=== PATIENT | male | born 1985 | race Caucasian/White ===

== ENCOUNTER 2022-02-14 09:29 | Emergency (ER) | payer OTHER ==
[2022-02-14 09:41] VITALS: TEMP 98.1
[2022-02-14] MEDS ORDERED: NITROGLYCERIN OINT 1 INCH/GM PACKET TOPICAL STA (09:55)
[2022-02-14] MEDS ORDERED: ASPIRIN 81 MG PO STA (09:55)
--- NOTE | 2022-02-14 10:01 | ED ---
General Adult HPI - General Chief complaint: Recheck/Abnormal Lab/Rx Stated complaint: High BP Time Seen by Provider: 02/14/22 09:44 Source: patient, RN notes reviewed Mode of arrival: ambulatory Limitations: no limitations - History of Present Illness Initial comments: Patient is a pleasant 36-year-old male presenting to the emergency department with concerns with high blood pressure. Blood pressure has been running high the past couple of days. Blood pressure has been as high as 150/130 at home. Patient has been having problems with his right lower first molar. Patient states this is waxing and waning. Discomfort of the tooth does worsen with cold water. No tooth discomfort at this time. Patient is also been experiencing some heaviness in his chest. Discomfort is mild at this time, 1 or 2/10. Discomfort has overall been mild and intermittent. - Related Data Home Medications Medication Instructions Recorded Confirmed Ascorbic Acid [Vitamin C] 1,000 mg PO DAILY 02/14/22 02/14/22 Cetirizine HCl [Zyrtec] 10 mg PO DAILY 02/14/22 02/14/22 Cholecalciferol [Vitamin D3 (25 50 mcg PO DAILY 02/14/22 02/14/22 Mcg = 1000 Iu)] Vitamin B Complex 1 cap PO DAILY 02/14/22 02/14/22 Previous Rx's Medication Instructions Recorded Erythromycin [Jonah-Tab] 250 mg PO Q8HR #30 tablet 02/14/22 Ibuprofen [Motrin] 600 mg PO Q6HR PRN #20 tab 02/14/22 Allergies Allergy/AdvReac Type Severity Reaction Status Date / Time amoxicillin Allergy Anaphylaxis Verified 02/14/22 11:56 Penicillins Allergy Anaphylaxis Verified 02/14/22 11:56 Review of Systems ROS Statement: Those systems with pertinent positive or pertinent negative responses have been documented in the HPI. ROS Other: All systems not noted in ROS Statement are negative. Constitutional: Denies: fever Eyes: Denies: eye pain ENT: Reports: dental pain Respiratory: Denies: cough Cardiovascular: Reports: chest pain Endocrine: Denies: fatigue Gastrointestinal: Denies: abdominal pain, nausea, vomiting Genitourinary: Denies: dysuria Musculoskeletal: Denies: back pain Skin: Denies: rash Neurological: Denies: weakness Past Medical History Past Medical History: No Reported History History of Any Multi-Drug Resistant Organisms: None Reported Additional Past Surgical History / Comment(s): oral surgery Past Psychological History: No Psychological Hx Reported Smoking Status: Former smoker Past Alcohol Use History: None Reported Past Drug Use History: None Reported General Exam Limitations: no limitations General appearance: alert, in no apparent distress Head exam: Present: normocephalic Eye exam: Present: normal appearance ENT exam: Present: normal oropharynx Neck exam: Present: normal inspection Respiratory exam: Present: normal lung sounds bilaterally. Absent: chest wall tenderness Cardiovascular Exam: Present: regular rate, normal rhythm Expanded Peripheral pulses: 2+: Radial (R), Radial (L), Posterior Tibialis (R), Posterior Tibialis (L) GI/Abdominal exam: Present: soft. Absent: tenderness Extremities exam: Present: normal inspection. Absent: pedal edema, calf tenderness Neurological exam: Present: alert Psychiatric exam: Present: normal affect, normal mood Skin exam: Present: normal color Course Vital Signs 02/14/22 02/14/22 02/14/22 09:36 10:25 12:24 Temperature 98.1 F Pulse Rate 85 76 82 Respiratory 16 18 18 Rate Blood Pressure 145/92 115/73 115/77 O2 Sat by Pulse 99 98 100 Oximetry EKG Findings - EKG Comments: EKG Findings:: Sinus rhythm 71. ME 16. QRS 98. QT 374. QTC 396. Normal axis. Normal QRS. No acute ST change. Medical Decision Making - Medical Decision Making Patient reevaluated and resting complain bed. Patient states his tooth is bothering him otherwise has no complaints at this time. Discussion had with patient regarding limitations in the emergency Department testing including troponin and troponin delay and others. Patient does not want to have repeat testing and would like to go home. Patient does them straight medical decision making. Patient does have appointment scheduled for dentist but will try to get a sooner 1. Patient states he is only concerned about his tooth this time - Lab Data Result diagrams: 02/14/22 10:02/14/22 10: Lab Results 02/14/22 02/14/22 02/14/22 Range/Units 10: 10:17 10:17 WBC 5.6 (3.8-10.6) k/uL RBC 4.73 (4.30-5.90) m/uL Hgb 14.5 (13.0-17.5) gm/dL Hct 40.4 (39.0-53.0) % MCV 85.4 (80.0-100.0) fL MCH 30.7 (25.0-35.0) pg MCHC 36.0 (31.0-37.0) g/dL RDW 12.0 (11.5-15.5) % Plt Count 210 (150-450) k/uL MPV 9.5 Neutrophils % 70 % Lymphocytes % 22 % Monocytes % 5 % Eosinophils % 0 % Basophils % 1 % Neutrophils # 3.9 (1.3-7.7) k/uL Lymphocytes # 1.2 (1.0-4.8) k/uL Monocytes # 0.3 (0-1.0) k/uL Eosinophils # 0.0 (0-0.7) k/uL Basophils # 0.1 (0-0.2) k/uL PT 10.6 (9.0-12.0) sec INR 1.0 (<1.2) APTT 23.4 (22.0-30.0) sec D-Dimer <0.17 (<0.60) mg/L FEU Sodium 141 (137-145) mmol/L Potassium 4.2 (3.5-5.1) mmol/L Chloride 104 (98-107) mmol/L Carbon Dioxide 24 (22-30) mmol/L Anion Gap 13 mmol/L BUN 11 (9-20) mg/dL Creatinine 0.62 L (0.66-1.25) mg/dL Est GFR (CKD-EPI)AfAm >90 (>60 ml/min/1.73 sqM) Est GFR (CKD-EPI)NonAf >90 (>60 ml/min/1.73 sqM) Glucose 110 H (74-99) mg/dL Calcium 9.4 (8.4-10.2) mg/dL Magnesium 1.7 (1.6-2.3) mg/dL Total Bilirubin 0.7 (0.2-1.3) mg/dL AST 20 (17-59) U/L ALT 22 (4-49) U/L Alkaline Phosphatase 83 (38-126) U/L Troponin I (0.000-0.034) ng/mL Total Protein 7.2 (6.3-8.2) g/dL Albumin 4.8 (3.5-5.0) g/dL 02/14/22 Range/Units 10:17 WBC (3.8-10.6) k/uL RBC (4.30-5.90) m/uL Hgb (13.0-17.5) gm/dL Hct (39.0-53.0) % MCV (80.0-100.0) fL MCH (25.0-35.0) pg MCHC (31.0-37.0) g/dL RDW (11.5-15.5) % Plt Count (150-450) k/uL MPV Neutrophils % % Lymphocytes % % Monocytes % % Eosinophils % % Basophils % % Neutrophils # (1.3-7.7) k/uL Lymphocytes # (1.0-4.8) k/uL Monocytes # (0-1.0) k/uL Eosinophils # (0-0.7) k/uL Basophils # (0-0.2) k/uL PT (9.0-12.0) sec INR (<1.2) APTT (22.0-30.0) sec D-Dimer (<0.60) mg/L FEU Sodium (137-145) mmol/L Potassium (3.5-5.1) mmol/L Chloride (98-107) mmol/L Carbon Dioxide (22-30) mmol/L Anion Gap mmol/L BUN (9-20) mg/dL Creatinine (0.66-1.25) mg/dL Est GFR (CKD-EPI)AfAm (>60 ml/min/1.73 sqM) Est GFR (CKD-EPI)NonAf (>60 ml/min/1.73 sqM) Glucose (74-99) mg/dL Calcium (8.4-10.2) mg/dL Magnesium (1.6-2.3) mg/dL Total Bilirubin (0.2-1.3) mg/dL AST (17-59) U/L ALT (4-49) U/L Alkaline Phosphatase (38-126) U/L Troponin I <0.012 (0.000-0.034) ng/mL Total Protein (6.3-8.2) g/dL Albumin (3.5-5.0) g/dL - Radiology Data Radiology results: image reviewed (Chest x-ray shows no acute process) Disposition Clinical Impression: Dentalgia Disposition: HOME SELF-CARE Condition: Stable Instructions (If sedation given, give patient instructions): Toothache (ED), Chest Pain (ED) Additional Instructions: Please do follow-up with her dentist as planned. Try to get sooner appointment. Return for increased pain, swelling, chest pain or shortness of breath, worsening symptoms or any other concerns. Prescriptions at the pharmacy. Prescriptions: Erythromycin [Jonah-Tab] 250 mg PO Q8HR #30 tablet Ibuprofen [Motrin] 600 mg PO Q6HR PRN #20 tab PRN Reason: Pain Is patient prescribed a controlled substance at d/c from ED?: No Referrals: [facility] [Primary Care Provider] - 1-2 days Time of Disposition: 12:37
[2022-02-14 10:25] VITALS: RESP 18
[2022-02-14 10:34] LABS: Basophils # (A) 0.1 k/uL (0-0.2); Basophils % (A) 1 %; Eosinophils % (A) 0 %; HCT 40.4 % (39.0-53.0); HGB 14.5 gm/dL (13.0-17.5); Lymphocytes # (A) 1.2 k/uL (1.0-4.8); Lymphocytes % (A) 22 %; MCH 30.7 pg (25.0-35.0); MCV 85.4 fL (80.0-100.0); Mean Platelet Volume 9.5; Monocytes # (A) 0.3 k/uL (0-1.0); Monocytes % (A) 5 %; Neutrophils # (A) 3.9 k/uL (1.3-7.7); Neutrophils % (A) 70 %; Platelet Count 210 k/uL (150-450); RBC 4.73 m/uL (4.30-5.90); WBC 5.6 k/uL (3.8-10.6)
[2022-02-14 10:46] LABS: ALT 22 U/L (4-49); AST 20 U/L (17-59); African American GFR (CKD) >90 (>60 ml/min/1.73 sqM); Albumin 4.8 g/dL (3.5-5.0); Alkaline Phosphatase 83 U/L (38-126); Anion Gap 13 mmol/L; Blood Urea Nitrogen 11 mg/dL (9-20); Calcium 9.4 mg/dL (8.4-10.2); Carbon Dioxide 24 mmol/L (22-30); Chloride 104 mmol/L (98-107); Glucose 110 mg/dL (74-99); Magnesium 1.7 mg/dL (1.6-2.3); Non-African American GFR(CKD) >90 (>60 ml/min/1.73 sqM); Potassium 4.2 mmol/L (3.5-5.1); Sodium 141 mmol/L (137-145); Total Bilirubin 0.7 mg/dL (0.2-1.3); Total Protein 7.2 g/dL (6.3-8.2)
[2022-02-14 10:48] LABS: Partial Thromboplastin Time 23.4 sec (22.0-30.0); Prothrombin Time 10.6 sec (9.0-12.0)
--- NOTE | 2022-02-14 10:53 | XR ---
EXAMINATION TYPE: XR chest 2V DATE OF EXAM: 02/14/2022 COMPARISON: NONE HISTORY: Chest pain. TECHNIQUE: Frontal and lateral views of the chest are obtained. FINDINGS: There is no focal air space opacity, pleural effusion, or pneumothorax seen. The cardiac silhouette size is within normal limits. The osseous structures are intact. Overlying EKG leads are present. IMPRESSION: No acute process.
[2022-02-14 12:24] VITALS: BP 115/77; PULSE 82
[2022-02-14] MEDS ORDERED: KETOROLAC 15 MG/ML 1 ML VIAL IVP STA (12:35)
[2022-02-14] MEDS ORDERED: ACET/COD 300 MG/30 MG STARTER PACK 6 TAB BTL PO STA (12:39)
== END 2022-02-14 12:51 | disposition home or self-care (01) ==
LOC: EC 09:29
DX: K08.89 Other specified disorders of teeth and supporting structures (principal); Z87.891 Personal history of nicotine dependence; Z88.0 Allergy status to penicillin
CPT/HCPCS: 36415; 93005; 85379; 80053; 83735; 84484; 85025; 85610; 85730; 71046; 96374; 99284; J1885

== ENCOUNTER 2022-10-07 13:43 | Emergency (ER) | payer OTHER ==
[2022-10-07 13:51] VITALS: BP 143/82; TEMP 98.2
[2022-10-07] MEDS ORDERED: SODIUM CHLORIDE 0.9% 1,000 ML IV ONE (14:22)
--- NOTE | 2022-10-07 14:27 | ED ---
General Adult HPI - General Chief complaint: Recheck/Abnormal Lab/Rx Stated complaint: HTN Time Seen by Provider: 10/07/22 14:06 Source: patient, RN notes reviewed Mode of arrival: ambulatory Limitations: no limitations - History of Present Illness Initial comments: This is a pleasant 37-year-old male presents to emergency department complaining of urinary frequency for the past 3 weeks. Patient also has a mild pressure in his bilateral kidney area. Patient states she ended up going to his regular doctor for this and had a urinalysis done as well as some blood work. There was no answer. Patient states he then passed a small kidney stone. Patient states he was better after that. Now the symptoms have started again. Interestingly, the patient never had what he would call actual pain. Just very mild pressure in the bilateral back area. No hematuria. No fever or chills. No nausea or vomiting. No chest pain or shortness of breath. - Related Data Home Medications Medication Instructions Recorded Confirmed Cetirizine HCl [Zyrtec] 10 mg PO HS 02/14/22 10/07/22 Cholecalciferol [Vitamin D3 (25 50 mcg PO DAILY 02/14/22 10/07/22 Mcg = 1000 Iu)] Ascorbic Acid [Vitamin C] 500 mg PO DAILY 10/07/22 10/07/22 Cinnamon Bark [Cinnamon] 1,000 mg PO DAILY 10/07/22 10/07/22 Fish Oil 1,200 Mg/[place]-3 360mg 1 cap PO DAILY 10/07/22 10/07/22 Magnesium Oxide [Magnesium] 500 mg PO DAILY 10/07/22 10/07/22 Vitamin E (Dl,Tocopheryl Acet) 400 unit PO DAILY 10/07/22 10/07/22 [Vitamin E (400 Iu = 180 mg)] Zinc Gluconate [Zinc] 50 mg PO DAILY 10/07/22 10/07/22 Previous Rx's Medication Instructions Recorded Tamsulosin [Flomax] 0.4 mg PO DAILY #30 cap 10/07/22 Allergies Allergy/AdvReac Type Severity Reaction Status Date / Time amoxicillin Allergy Anaphylaxis Verified 10/07/22 14:17 Penicillins Allergy Anaphylaxis Verified 10/07/22 14:17 Review of Systems ROS Statement: Those systems with pertinent positive or pertinent negative responses have been documented in the HPI. ROS Other: All systems not noted in ROS Statement are negative. Past Medical History Past Medical History: No Reported History History of Any Multi-Drug Resistant Organisms: None Reported Additional Past Surgical History / Comment(s): oral surgery Past Psychological History: No Psychological Hx Reported Smoking Status: Former smoker Past Alcohol Use History: None Reported Past Drug Use History: None Reported General Exam - General Exam Comments Initial Comments: Patient does not appear to be ill or toxic. Blood pressure minimally elevated. Cranial nerves II through XII grossly intact. Capillary refill less than 2 seconds. Limitations: no limitations General appearance: alert, in no apparent distress Head exam: Present: atraumatic, normocephalic, normal inspection Eye exam: Present: normal appearance, PERRL, EOMI. Absent: scleral icterus, conjunctival injection, periorbital swelling ENT exam: Present: normal exam, mucous membranes moist Neck exam: Present: normal inspection, full ROM. Absent: tenderness, meningismus, lymphadenopathy Respiratory exam: Present: normal lung sounds bilaterally. Absent: respiratory distress, wheezes, rales, rhonchi, stridor, chest wall tenderness, accessory muscle use Cardiovascular Exam: Present: regular rate, normal rhythm, normal heart sounds. Absent: systolic murmur, diastolic murmur, rubs, gallop, clicks GI/Abdominal exam: Present: soft, normal bowel sounds. Absent: distended, tenderness, guarding, rebound, rigid Rectal exam: Present: deferred exam: Present: normal inspection, circumcision, other (No adenopathy). Absent: testicular tenderness, urethral discharge, scrotal swelling Extremities exam: Present: normal inspection, full ROM, normal capillary refill. Absent: tenderness, pedal edema, joint swelling, calf tenderness Back exam: Present: normal inspection, full ROM. Absent: CVA tenderness (R), CVA tenderness (L), rash noted Neurological exam: Present: alert, oriented X3, CN II-XII intact Psychiatric exam: Present: normal affect, normal mood Skin exam: Present: warm, dry, intact, normal color. Absent: rash Course Vital Signs 10/07/22 13:49 Temperature 98.2 F Pulse Rate 86 Respiratory 20 Rate Blood Pressure 143/82 O2 Sat by Pulse 99 Oximetry - Reevaluation(s) Reevaluation #1: 10/07/22 15:16 Independent interpretation of the CT abdomen and pelvis with IV contrast by me shows no evidence of acute pathology. No free air. No hydronephrosis. No perinephric stranding. No evidence of obstruction. Patient does have a calcification noted in the left hemipelvis adjacent to the UVJ. No mention by radiology. Did review radiology interpretation. 10/07/22 15:18 Medical Decision Making - Medical Decision Making Was pt. sent in by a medical professional or institution? @ -No Did you speak to anyone other than the patient for history? @ -Patient's significant other also in the room Did you review nursing and triage notes? @ -Agree Were old charts reviewed? @ -no Differential Diagnosis? @ -Differential diagnosis includes but is not limited tourinary retention, ure terolithiasis, less likely infectious etiology such as urinary tract infection or pyelonephritis. Other evidently such as perinephric abscess unlikely but possible. Less frequent diagnosis is lying pain and hematuria possible unlikely. Does not appear to be consistent with other flexion such as cauda equina syndrome as the patient is ambulatory. Has no neurological symptoms. No saddle anesthesia. EKG interpreted by me (3pts min.)? @ -[EKG independently interpreted by me at 1405 reveals sinus rhythm with QRS duration 122 ms. Rate 80, Other intervals are normal. Left axis deviation. No acute ST or T-wave changes. No Comparison study.] X-rays interpreted by me (1pt min.)? @ -[none] CT interpreted by me (1pt min.)? @ -[none] U/S interpreted by me (1pt. min.)? @ -[none] What testing was considered but not performed? (CT, X-rays, U/S, labs)? Why? @ [None] What meds were considered but not given? Why? @ -[none] Did you discuss the management of the patient with other professionals? @ -Case discussed with the on-call urologist, Dr. Hernandez, who advised follow-up in his office. He suggested there may be a possible urethral stricture. He suggested Flomax 0.4 mg by mouth. The case was discussed in detail with ED attending physician. Presentation, findings, treatment plan discussed in detail. Did you reconcile home meds? @ -[none] Was smoking cessation discussed for >3mins.? @ -[none] Was critical care preformed (if so, how long)? @ -[none] Were there social determinants of health that impacted care today? How? (Homelessness, low income, unemployed, alcoholism, drug addiction, transportation, low edu. Level, literacy, decrease access to med. care, longterm, rehab)? @ -None Was there de-escalation of care discussed even if they declined? (Discuss DNR or withdrawal of care, Hospice)? @ -Not applicable What co-morbidities impacted this encounter? (DM, HTN, Smoking, COPD, CAD, Cancer, CVA, Hep., AIDS, mental health diagnosis, sleep apnea, morbid obesity)? @ -9 Was patient admitted / discharged? @ -Patient was told to return to the ER for any signs or symptoms worsen. Told to return immediately if any other problems arise. All questions answered. Treatment plan discussed. Patient in agreement Every effort has been made to ensure accuracy of this dictation. However, due to the limitations of electronic medical records and dictation devices, errors in charting still occur. Undiagnosed new problem with uncertain prognosis? @ -New problem, uncertain prognosis Drug Therapy requiring intensive monitoring for toxicity (Heparin, Nitro, Insulin, Cardizem)? @ -[none] Were any procedures done? @ -Bladder scan, greater than 500 mL on initial scan, postvoid residual 278 mL. Diagnosis/symptom? @ -Urinary retention, urinary frequency Acute, or Chronic, or Acute on Chronic? @ -Acute Uncomplicated (without systemic symptoms) or Complicated (systemic symptoms)? @ -Relatively uncomplicated at this point. However needs follow-up. Case discussed with urology. Certainly this could be problematic if not followed up on appropriately. Side effects of treatment? @ -[none] Exacerbation, Progression, or Severe Exacerbation] @ -[no] Poses a threat to life or bodily function? @ -Possible if not followed up on. Patient follow-up with urology. Seems to be relatively minor at this point. - Lab Data Result diagrams: 10/07/22 14:20 10/07/22 14:20 Lab Results 10/07/22 10/07/22 10/07/22 Range/Units 14:20 14:20 14:47 WBC 5.3 (3.8-10.6) k/uL RBC 4.70 (4.30-5.90) m/uL Hgb 14.0 (13.0-17.5) gm/dL Hct 40.6 (39.0-53.0) % MCV 86.4 (80.0-100.0) fL MCH 29.8 (25.0-35.0) pg MCHC 34.5 (31.0-37.0) g/dL RDW 12.2 (11.5-15.5) % Plt Count 226 (150-450) k/uL MPV 8.9 Neutrophils % 68 % Lymphocytes % 25 % Monocytes % 4 % Eosinophils % 1 % Basophils % 1 % Neutrophils # 3.6 (1.3-7.7) k/uL Lymphocytes # 1.3 (1.0-4.8) k/uL Monocytes # 0.2 (0-1.0) k/uL Eosinophils # 0.1 (0-0.7) k/uL Basophils # 0.0 (0-0.2) k/uL Sodium 140 (137-145) mmol/L Potassium 4.1 (3.5-5.1) mmol/L Chloride 102 (98-107) mmol/L Carbon Dioxide 26 (22-30) mmol/L Anion Gap 12 mmol/L BUN 7 L (9-20) mg/dL Creatinine 0.65 L (0.66-1.25) mg/dL Est GFR (CKD-EPI)AfAm >90 (>60 ml/min/1.73 sqM) Est GFR (CKD-EPI)NonAf >90 (>60 ml/min/1.73 sqM) Glucose 105 H (74-99) mg/dL Calcium 8.8 (8.4-10.2) mg/dL Total Bilirubin 0.5 (0.2-1.3) mg/dL AST 25 (17-59) U/L ALT 25 (4-49) U/L Alkaline Phosphatase 73 (38-126) U/L Total Protein 7.4 (6.3-8.2) g/dL Albumin 4.5 (3.5-5.0) g/dL Lipase 108 (23-300) U/L Urine Color Colorless Urine Appearance Clear (Clear) Urine pH 6.5 (5.0-8.0) Ur Specific [place] 1.003 (1.001-1.035) Urine Protein Negative (Negative) Urine Glucose (UA) Negative (Negative) Urine Ketones Negative (Negative) Urine Blood Negative (Negative) Urine Nitrite Negative (Negative) Urine Bilirubin Negative (Negative) Urine Urobilinogen <2.0 (<2.0) mg/dL Ur Leukocyte Esterase Negative (Negative) Disposition Clinical Impression: Acute urinary retention, Frequent urination Disposition: HOME SELF-CARE Condition: Good Instructions (If sedation given, give patient instructions): Urinary Retention in Men (ED) Additional Instructions: Follow-up with the urologist as discussed. Call the office at 8 or 9 AM Monday morning to schedule follow-up. Take the Flomax as directed. Follow-up with your regular physician as directed. Return to the ER immediately if any symptoms worsen, new symptoms arise, or any other problems develop. Is patient prescribed a controlled substance at d/c from ED?: No When asked, does pt state using other controlled substances?: No Referrals: Kike Hernandez MD [STAFF PHYSICIAN] - 10/11/22 Time of Disposition: 16:19
[2022-10-07 14:49] LABS: Basophils % (A) 1 %; Eosinophils # (A) 0.1 k/uL (0-0.7); Eosinophils % (A) 1 %; HCT 40.6 % (39.0-53.0); Lymphocytes # (A) 1.3 k/uL (1.0-4.8); Lymphocytes % (A) 25 %; MCH 29.8 pg (25.0-35.0); MCHC 34.5 g/dL (31.0-37.0); MCV 86.4 fL (80.0-100.0); Mean Platelet Volume 8.9; Monocytes # (A) 0.2 k/uL (0-1.0); Monocytes % (A) 4 %; Neutrophils # (A) 3.6 k/uL (1.3-7.7); Neutrophils % (A) 68 %; Platelet Count 226 k/uL (150-450); RDW 12.2 % (11.5-15.5); WBC 5.3 k/uL (3.8-10.6)
[2022-10-07 15:10] LABS: ALT 25 U/L (4-49); AST 25 U/L (17-59); African American GFR (CKD) >90 (>60 ml/min/1.73 sqM); Albumin 4.5 g/dL (3.5-5.0); Alkaline Phosphatase 73 U/L (38-126); Anion Gap 12 mmol/L; Blood Urea Nitrogen 7 mg/dL (9-20); Calcium 8.8 mg/dL (8.4-10.2); Carbon Dioxide 26 mmol/L (22-30); Chloride 102 mmol/L (98-107); Glucose 105 mg/dL (74-99); Lipase 108 U/L (23-300); Non-African American GFR(CKD) >90 (>60 ml/min/1.73 sqM); Potassium 4.1 mmol/L (3.5-5.1); Sodium 140 mmol/L (137-145); Total Bilirubin 0.5 mg/dL (0.2-1.3); Total Protein 7.4 g/dL (6.3-8.2)
--- NOTE | 2022-10-07 15:12 | CT ---
EXAMINATION TYPE: CT abdomen pelvis w con DATE OF EXAM: 10/07/2022 COMPARISON: None HISTORY: Bilateral flank pain, CVA area, urinary frequency CT DLP: 1545.1 mGycm Automated exposure control for dose reduction was used. TECHNIQUE: Helical acquisition of images was performed from the lung bases through the pelvis. CONTRAST: Performed without Oral Contrast and with IV Contrast, patient injected with 100ml mL of Isovue 300. FINDINGS: Lung bases are clear. The gallbladder is normal without distention, wall thickening, gallstone or pericholecystic fluid. Th ere is no biliary ductal dilatation. There is no focal mass or organomegaly involving the solid visceral organs of the upper abdomen. The kidneys enhance symmetrically and promptly and there is no solid renal mass or hydronephrosis. There is no retroperitoneal adenopathy or hemorrhage in the caliber the abdominal aorta is normal. The bowel loops are normal in caliber and there is no dilatation or obstruction. No inflammatory changes are identified in the bowel wall or mesentery. There is no pelvic mass, free fluid, abscess or adenopathy. The soft tissues and osseous structures of the abdomen and pelvis are intact. IMPRESSION: No significant abnormality seen.
[2022-10-07 15:48] LABS: Appearance,Urine Clear (Clear); Bilirubin,Urine Negative (Negative); Blood,Urine Negative (Negative); Color,Urine Colorless; Glucose,Urine (UA) Negative (Negative); Ketones,Urine Negative (Negative); Leukocyte Esterase,Urine Negative (Negative); Nitrite,Urine Negative (Negative); PH, Urine 6.5 (5.0-8.0); Protein,Urine Negative (Negative); Specific Gravity,Urine 1.003 (1.001-1.035); Urobilinogen,Urine <2.0 mg/dL (<2.0)
[2022-10-07 16:28] VITALS: PULSE 93; RESP 18
== END 2022-10-07 16:28 | disposition home or self-care (01) ==
LOC: EC 13:43
DX: R33.9 Retention of urine, unspecified (principal); R35.0 Frequency of micturition; I10 Essential (primary) hypertension; Z79.899 Other long term (current) drug therapy; Z87.891 Personal history of nicotine dependence; Z88.0 Allergy status to penicillin
CPT/HCPCS: 51798; 36415; 93005; 80053; 83690; 85025; 81003; 74177; 99284; 96360; Q9967